=== PATIENT | male | born 1980 | race Caucasian/White ===

== ENCOUNTER 2020-01-17 10:29 | Inpatient (IN) | payer BC, OTHER ==
[~2020-01-17] VITALS: Ht 193 cm; Wt 104.5 kg
[2020-01-17] MEDS ORDERED: ONDANSETRON HCL 4 MG/2 ML VIAL IV ONE (11:30)
[2020-01-17] MEDS ORDERED: AZITHROMYCIN 500MG/ 250ML 250 ML IV ONE (11:30)
[2020-01-17] MEDS ORDERED: LACTATED RINGER'S 1,000 ML IV ONE (11:30)
[2020-01-17 11:34] LABS: Basophils # (auto) 0 10 ^3/uL (0-0.2); Basophils % (auto) 0.3 % (0.0-2.0); Eosinophils # (auto) 0.1 10 ^3/uL (0-0.8); Eosinophils % (auto) 0.7 % (0.0-7.0); Hematocrit 44.8 % (41.0-53.0); Hemoglobin 15.9 g/dL (13.5-17.5); Lymphocytes # (auto) 1.2 10 ^3/uL (0.4-5.4); Lymphocytes % (auto) 14.9 % (10.0-50.0); Mean Corpuscular Hemoglobin 32.4 pg (28.0-32.0); Mean Corpuscular Hgb Conc. 35.4 g/dL (32.0-36.0); Mean Corpuscular Volume 91.7 fL (80.0-100.0); Monocytes # (auto) 0.7 10 ^3/uL (0-1.3); Monocytes % (auto) 9.1 % (0.0-12.0); Nucleated Red Blood Cells % 0.1 %; Platelet Count (auto) 242 10^3/uL (140-450); Red Blood Cells 4.89 10^6/uL (4.5-5.90)
[2020-01-17 11:46] LABS: Albumin 3.5 g/dL (3.4-5.0); Calcium 9.3 mg/dL (8.5-10.1); Potassium 4.5 mmol/L (3.5-5.1)
[2020-01-17 11:52] LABS: BUN/Creatinine Ratio 15.1; Bilirubin, Total 0.9 mg/dL (0.2-1.0); Magnesium 2.5 mg/dL (1.6-2.6); Total Protein 8.5 g/dL (6.4-8.2)
[2020-01-17 12:01] LABS: CRP High Sensitivity 8.46 mg/dL (< 0.3)
[2020-01-17] MEDS ORDERED: ENOXAPARIN SOD 100 MG/1 ML SYRINGE SC ONE (13:30)
[2020-01-17] MEDS ORDERED: SODIUM CHLORIDE 0.9% 1,000 ML IV SCH (14:08)
[2020-01-17] MEDS ORDERED: NITROGLYCERIN 0.4 MG SL TAB SL PRN (14:15)
[2020-01-17] MEDS ORDERED: ONDANSETRON HCL 4 MG/2 ML VIAL IV PRN (14:15)
[2020-01-17] MEDS ORDERED: hydrALAZINE HCL 20 MG/ML VL IV PRN (14:15)
[2020-01-17] MEDS ORDERED: LORazepam 0.5 MG TAB PO PRN (14:15)
[2020-01-17] MEDS ORDERED: MORPHINE SULF INJ 2 MG/ML SYRINGE 1ML IV PRN ×2 (14:15)
[2020-01-17] MEDS ORDERED: ACETAMINOPHEN 500 MG TAB PO PRN (14:15)
--- NOTE | 2020-01-17 15:00 | NUR ---
Telemetry admit from ER JESSICATYSONABBY admitted to Telemetry unit after SBAR received. Patient oriented to RENE GUEVARA RN primary RN, unit, room, bed, and unit policies regarding patient care and visiting hours. Patient now on continuous telemetry monitoring, tele box # 1 and telemetry reading on arrival to unit is SB 46. Patient placed on bedside oxygen, weighed by bedscale and encouraged to call if they need something. All questions and concerns addressed, patient verbalized understanding.
[2020-01-17 15:14] VITALS: BP 127/69
[2020-01-17 17:00] VITALS: BP 115/61
[2020-01-17 19:23] LABS: Calcium 8.4 mg/dL (8.5-10.1)
[2020-01-17 19:27] LABS: BUN/Creatinine Ratio 15.9; Bilirubin, Total 0.8 mg/dL (0.2-1.0); Total Protein 7.2 g/dL (6.4-8.2)
[2020-01-17 21:30] VITALS: BP 111/60
[2020-01-17] MEDS: ALBUTEROL SULF HFA 90MCG INH 200DOSE IN SCH (21:51)
[2020-01-17] MEDS: BUDESONIDE (INHALATION) 180 MCG IH IN SCH (21:51)
--- NOTE | 2020-01-17 21:51 | NUR ---
RT NOTE: PT ASSESSED FOR NEED OF MDI AND DPI TX, PT DENIES SOB OR HISTORY OF PULMONARY DISEASE. BS CLEAR AND DECREASED. PT ON 3LPM NC, SPO2 96% HR 48, RR 18. PT STATED TX AREN'T NEEDED AT THIS TIME AND WILL CALL IF SOB OCCURS.
--- NOTE | 2020-01-17 22:45 | NUR ---
new orders This nurse Spoke with Hospitalist Eber regarding pts HR rate maintaining in the 30s. New orders received: Cardiology Consult and Echocardiogram. Orders received and read back. This nurse will carry out orders.
[2020-01-18] VITALS (8 sets, daily range): BP systolic 107–113; BP diastolic 54–81
--- NOTE | 2020-01-18 05:25 | NUR ---
EKG completed, strip in hard chart
[2020-01-18 07:20] LABS: Hematocrit 42.5 % (41.0-53.0); Hemoglobin 14.3 g/dL (13.5-17.5); Mean Corpuscular Hemoglobin 30.9 pg (28.0-32.0); Mean Corpuscular Hgb Conc. 33.6 g/dL (32.0-36.0); Mean Corpuscular Volume 91.9 fL (80.0-100.0); Platelet Count (auto) 238 10^3/uL (140-450); Red Blood Cells 4.62 10^6/uL (4.5-5.90); White Blood Cell 5.3 10^3/uL (4.4-10.8)
--- NOTE | 2020-01-18 07:20 | NUR ---
closing note pt A&Ox4. no c/o pain or discomfort. endorsed care to day shift RN
[2020-01-18 07:34] LABS: CRP High Sensitivity 5.4 mg/dL (< 0.3)
[2020-01-18 07:38] LABS: Basophils % (manual) 0 (0.0-2.0); Blast Cells 0; Metamyelocytes % 0; Myelocytes % 0; Promyelocytes % 0; Reactive Lymphocytes 0
[2020-01-18] MEDS: BUDESONIDE (INHALATION) 180 MCG IH IN SCH ×2 (08:07→21:47)
[2020-01-18] MEDS: ALBUTEROL SULF HFA 90MCG INH 200DOSE IN SCH ×3 (08:07→21:46)
[2020-01-18 08:14] LABS: Band Neutrophils % (manual) 3; Eosinophils % (manual) 4 (0-7); Lymphocytes % (manual) 25 (10.0-50.0); Monocytes % (manual) 13 (0-12)
[2020-01-18] MEDS: cefTRIAXone 1GM/50ML D5W 50 ML IV SCH (09:12)
[2020-01-18] MEDS: AZITHROMYCIN 500MG/ 250ML 250 ML IV SCH (09:51)
[2020-01-18] MEDS: ZINC SULFATE 220mg CAP or TAB PO SCH (09:51)
[2020-01-18] MEDS: ASCORBIC ACID 1,000 MG TAB PO SCH (09:52)
[2020-01-18] MEDS: CHOLECALCIFEROL (VITD3) 2,000 UNIT CAP PO SCH (09:52)
[2020-01-18] MEDS: ENOXAPARIN SOD 40 MG/0.4 ML SYRINGE SC SCH (09:52)
[2020-01-18] MEDS ORDERED: PANTOPRAZOLE 40 MG/10 ML VIAL INJ IV SCH (10:00)
[2020-01-18] MEDS ORDERED: DOCUSATE CALCIUM 240 MG CAP PO SCH (10:00)
--- NOTE | 2020-01-18 10:13 | NUR ---
ss consult Per ss consult advanced directive information. Patient has been given advanced directive by bedside nurse. Addendum: 01/18/20 at 1014 by Tisha MOYA Amended: Links added.
--- NOTE | 2020-01-18 12:14 | NUR ---
Dr Mckeon bedside with patient discussing plan of care. Orders received and carried out
[2020-01-18] MEDS ORDERED: IOHEXOL 350 MG/ML 100ML IJ ONE (12:18)
--- NOTE | 2020-01-18 12:40 | NUR ---
Orders received from Dr Keen and carried out
[2020-01-18] MEDS ORDERED: DexAMETHasone 4 MG TAB PO ONE (12:45)
--- NOTE | 2020-01-18 12:58 | NUR ---
Annamarie covid swab Covid swab collected and walked to lab
[2020-01-18] MEDS ORDERED: ZINC SULFATE 220mg CAP or TAB PO ONE (13:00)
[2020-01-18] MEDS ORDERED: PANTOPRAZOLE 40 MG TAB PO ONE (13:00)
--- NOTE | 2020-01-18 13:23 | NUR ---
Patient off unit for CT
--- NOTE | 2020-01-18 15:17 | NUR ---
Inhouse Covid swab Inhouse covid swab collected and walked to lab
[2020-01-18] MEDS ORDERED: FUROSEMIDE 20 MG/2 ML VIAL IV ONE (15:45)
--- NOTE | 2020-01-18 19:30 | NUR ---
Opening Shift Note Assumed care of patient, awake and alert. No S/S of distress/SOB or pain. Patient made aware of pending In-House Covid result. Instructed on POC and to call for assist PRN, will continue to monitor for changes Q1hr and PRN.
[2020-01-19 06:00] VITALS: BP 115/66
[2020-01-19] MEDS: ALBUTEROL SULF HFA 90MCG INH 200DOSE IN SCH ×2 (06:58→13:41)
[2020-01-19] MEDS: BUDESONIDE (INHALATION) 180 MCG IH IN SCH (06:58)
[2020-01-19 07:18] LABS: Chloride 105 mmol/L (98-107); Potassium 4.3 mmol/L (3.5-5.1); Sodium 138 mmol/L (136-145)
[2020-01-19 07:25] LABS: Anion Gap 8 (5-15); BUN/Creatinine Ratio 22.5; Blood Urea Nitrogen 20 mg/dL (7-18); Calcium 9.2 mg/dL (8.5-10.1); Carbon Dioxide 25 mmol/L (21-32); GFR African American 121 mL/min; GFR Non-African American 100 mL/min; Glucose 131 mg/dL (74-106)
[2020-01-19 08:00] VITALS: BP 116/70
--- NOTE | 2020-01-19 08:00 | NUR ---
Opening Shift Note Assumed care of patient, awake and alertx4. No S/S of distress/SOB or pain. Instructed on POC and to call for assist PRN. Bed at lowest locked position and call light within reach. Will continue to monitor for changes Q1hr and PRN.
[2020-01-19 09:00] VITALS: BP 116/70
[2020-01-19] MEDS: AZITHROMYCIN 500MG/ 250ML 250 ML IV SCH (09:06)
[2020-01-19] MEDS: cefTRIAXone 1GM/50ML D5W 50 ML IV SCH (09:06)
[2020-01-19] MEDS: FUROSEMIDE 20 MG/2 ML VIAL IV SCH (09:07)
[2020-01-19] MEDS: CHOLECALCIFEROL (VITD3) 2,000 UNIT CAP PO SCH (09:07)
[2020-01-19] MEDS: ENOXAPARIN SOD 40 MG/0.4 ML SYRINGE SC SCH (09:07)
[2020-01-19] MEDS: DexAMETHasone 4 MG TAB PO SCH (09:08)
[2020-01-19] MEDS: ZINC SULFATE 220mg CAP or TAB PO SCH (09:08)
[2020-01-19] MEDS: POTASSIUM EFFERVESENT TAB 25 MEQ PO SCH (09:08)
[2020-01-19] MEDS: PANTOPRAZOLE 40 MG TAB PO SCH (09:08)
[2020-01-19] MEDS: ASCORBIC ACID 1,000 MG TAB PO SCH (09:10)
[2020-01-19 13:00] VITALS: BP 108/68
--- NOTE | 2020-01-19 13:41 | NUR ---
Respiratory note: MDI GIVEN BY RN
--- NOTE | 2020-01-19 14:53 | NUR ---
Nutrition Assessment Notes Please refer to link for full assessment notes. Est Energy needs: 8075-9210 kcals (20-23 kcal/kgBW) Est Protein needs: 126-167 gms/day (1.2-1.6 gm/kgBW) d/t pt with respiratory distress Will continue to monitor and reassess prn. Addendum: 01/19/20 at [address] Amended: Links added.
--- NOTE | 2020-01-19 15:00 | NUR ---
titrated oxygen down to 2L, will continue to monitor. Addendum: 01/19/20 at 1557 by Raquel Jolly RN patients spo2 at 95%, no s/s of distress/sob noted stated will continue to monitor.
[2020-01-19 17:00] VITALS: BP 115/54
--- NOTE | 2020-01-19 18:47 | NUR ---
patient was titrated to 1L NC, currently saturating at 92%, no s/s of distress/sob noted stated
--- NOTE | 2020-01-19 18:48 | NUR ---
closing shift note Patient is comfortably resting in bed, no s/s of distress/sob noted/stated. Bed at lowest locked position and call light within reach. Will endorse care to NOC RN.
--- NOTE | 2020-01-19 20:00 | NUR ---
Opening Shift Note Assumed care of patient, awake and alert x4. Patient denies pain or shortness of breath at this time. No sign/symptoms of distress noted or verbalized at this time. Instructed on plan of care and encouraged patient to call for assistance as needed, patient verbalized understanding. Incentive spirometer noted at the bedside, encouraged patient to use incentive spirometer at least 10 times every hour while awake, patient verbalized understanding. Bed is locked in lowest position, side rails x 2 are up, and call light is within reach.
[2020-01-19 22:00] VITALS: BP 110/62
[2020-01-20 05:05] VITALS: BP 110/57
[2020-01-20] MEDS: BUDESONIDE (INHALATION) 180 MCG IH IN SCH (07:41)
[2020-01-20] MEDS: ALBUTEROL SULF HFA 90MCG INH 200DOSE IN SCH (07:41)
[2020-01-20 08:00] VITALS: BP 115/69
[2020-01-20] MEDS: cefTRIAXone 1GM/50ML D5W 50 ML IV SCH (08:52)
[2020-01-20 09:00] VITALS: BP 115/69
[2020-01-20] MEDS: FUROSEMIDE 20 MG/2 ML VIAL IV SCH (09:27)
[2020-01-20] MEDS: AZITHROMYCIN 500MG/ 250ML 250 ML IV SCH (09:27)
[2020-01-20] MEDS: ZINC SULFATE 220mg CAP or TAB PO SCH (09:28)
[2020-01-20] MEDS: POTASSIUM EFFERVESENT TAB 25 MEQ PO SCH (09:29)
[2020-01-20] MEDS: ASCORBIC ACID 1,000 MG TAB PO SCH (09:29)
[2020-01-20] MEDS: CHOLECALCIFEROL (VITD3) 2,000 UNIT CAP PO SCH (09:29)
[2020-01-20] MEDS: PANTOPRAZOLE 40 MG TAB PO SCH (09:29)
[2020-01-20] MEDS: DexAMETHasone 4 MG TAB PO SCH (09:29)
[2020-01-20] MEDS: ENOXAPARIN SOD 40 MG/0.4 ML SYRINGE SC SCH (09:30)
--- NOTE | 2020-01-20 12:33 | NUR ---
Patient on room air, 02 at 95%
[2020-01-20 13:00] VITALS: BP 124/69
[2020-01-20] MEDS ORDERED: CHOL1CAP47 PO (13:16)
[2020-01-20] MEDS ORDERED: DOXY-286 PO (13:16)
[2020-01-20] MEDS ORDERED: AMOX500T86 PO (13:18)
[2020-01-20 13:25] VITALS: BP 124/69
--- NOTE | 2020-01-20 15:00 | NUR ---
Discharge instructions given as ordered. Encouraged to f/u at [facility] on Jan 30 @ 10:30. . All questions and concerns addressed. Patient verbalized understanding. Prescription for new medications called in to preferred pharmacy by MD. Medication reconciliation form completed and copy given to patient. No needed vaccines given, as patient declined. IV removed with catheter intact and pressure dressing applied. Telemetry unit returned to ICU. Patient taken to vehicle via wheelchair with all personal belongings, accompanied by staff member. No distress noted at time of departure.
== END 2020-01-20 15:00 | disposition home or self-care (01) | DRG 871 ==
LOC: ER 10:29 → TELE 10:30 → TELE-EAST 15:09
PROVIDERS: ATTEND Internal Medicine Nephrology
DX: A41.89 Other specified sepsis (principal); J12.89 Other viral pneumonia; J96.01 Acute respiratory failure with hypoxia; U07.1 COVID-19; R04.2 Hemoptysis; D89.9 Disorder involving the immune mechanism, unspecified; R73.9 Hyperglycemia, unspecified; K52.9 Noninfective gastroenteritis and colitis, unspecified; R65.20 Severe sepsis without septic shock; Z87.891 Personal history of nicotine dependence
CPT/HCPCS: 36415; 71045; 71275; 80048; 80053; 82728; 83605; 83615; 83735; 83880; 84443; 85007; 85025; 85027; 85379; 86141; 87040; 87070; 87205; 87426; 93005; 94640; 96365; 96366; 96372; 96375; 99291; C9113; G0378; J0696; J2405